=== PATIENT | female | born 1955 | race Caucasian/White ===

== ENCOUNTER 2017-12-18 15:21 | Emergency (ER) | payer OTHER ==
[2017-12-18 15:36] VITALS: RESP 18; TEMP 98
[2017-12-18] MEDS ORDERED: NS 1,000 ML IV ONE (15:55)
[2017-12-18] MEDS ORDERED: ONDANSETRON 4 MG/2 ML VIAL IVP ONE (15:55)
[2017-12-18] MEDS ORDERED: HYDROmorphONE/DILAUDID 1 MG/ML INJ IVP ONE (15:55)
--- NOTE | 2017-12-18 15:59 | EDPHY ---
H & P Stated Complaint: c/o Rt lower abd pain rad to back with N/V after eating x 3 days Time Seen by Provider: 12/18/17 15:48 HPI/ROS: CHIEF COMPLAINT: Right flank pain HISTORY OF PRESENT ILLNESS: Patient is a 62-year-old female who is postmenopausal and has a history of appendectomy who comes to the emergency department complaining of pain postprandial for the last 3 days. She states that typically her pain episodes last for about 2 hr after she eats. It does not seem to matter what type of food she eats. She has not had a fever. No vomiting. No diarrhea. She had a normal bowel movement today. She states that she does feel like she is starting to get a urine infection and is afraid to urinate. She states that the pain starts in her right CVA and radiates to her right hip. She also however complains of some pain in her right upper quadrant. She denies spinal pain or tenderness. No swelling. No rash. REVIEW OF SYSTEMS: Constitutional: denies: chills, fever, recent illness, recent injury EENTM: denies: blurred vision, double vision, nose congestion Respiratory: denies: cough, shortness of breath Cardiac: denies: chest pain, irregular heart rate, lightheadedness, palpitations Gastrointestinal/Abdominal: see HPI Genitourinary: denies: dysuria, frequency, hematuria, pain Musculoskeletal: denies: joint pain, muscle pain Skin: denies: lesions, rash, jaundice, bruising Neurological: denies: headache, numbness, paresthesia, tingling, dizziness, weakness Hematologic/Lymphatic: denies: blood clots, easy bleeding, easy bruising Immunologic/allergic: denies: HIV/AIDS, transplant EXAM: GENERAL: Well-appearing, well-nourished and in no acute distress. HEAD: Atraumatic, normocephalic. EYES: Pupils equal round and reactive to light, extraocular movements intact, sclera anicteric, conjunctiva are normal. ENT: TMs normal, nares patent, oropharynx clear without exudates. Moist mucous membranes. NECK: Normal range of motion, supple without lymphadenopathy or JVD. LUNGS: Breath sounds clear to auscultation bilaterally and equal. No wheezes rales or rhonchi. HEART: Regular rate and rhythm without murmurs, rubs or gallops. ABDOMEN: Soft, nontender, normoactive bowel sounds. No guarding, no rebound. No masses appreciated. Patient's symptoms points to her right upper quadrant and other times to her right hip and other times to her right periumbilical region as the location where her pain radiates. BACK: Pain but no CVA tenderness, no spinal tenderness, step-offs or deformities EXTREMITIES: Normal range of motion, no pitting or edema. No clubbing or cyanosis. NEUROLOGICAL: Cranial nerves II through XII grossly intact. Normal speech, normal gait. 5/5 strength, normal movement in all extremities, normal sensation PSYCH: Normal mood, normal affect. SKIN: Warm, dry, normal turgor, no visible rashes or lesions. Source: Patient Exam Limitations: No limitations - Personal History Current Tetanus Diphtheria and Acellular Pertussis (TDAP): No - Medical/Surgical History Hx Asthma: No Hx Chronic Respiratory Disease: No Hx Diabetes: No Hx Cardiac Disease: No Hx Renal Disease: No Hx Cirrhosis: No Hx Alcoholism: No Hx HIV/AIDS: No Hx Splenectomy or Spleen Trauma: No Other PMH: med hx-mild bipolar. surg-mamoplasty reduction,appy - Family History Significant Family History: No pertinent family hx - Social History Smoking Status: Never smoked Alcohol Use: Sober Drug Use: None Constitutional: Initial Vital Signs Temperature (C) 36.6 C 12/18/17 15:34 Heart Rate 73 12/18/17 15:34 Respiratory Rate 18 12/18/17 15:34 Blood Pressure 154/78 H 12/18/17 15:34 O2 Sat (%) 96 12/18/17 15:34 O2 Delivery Mode Room Air Allergies/Adverse Reactions: No Known Allergies Allergy (Verified 06/26/14 12:54) Home Medications: Medication Instructions Recorded Levothyroxine [Synthroid 75 mcg 75 mcg PO DAILY06 04/05/12 (RX)] ARIPiprazole [Abilify 2 mg (RX)] 1.5 mg 06/26/14 QUEtiapine FUMARATE [Seroquel 25 50 06/26/14 mg (RX)] Ketorolac Tromethamine [Toradol] 10 mg PO Q6H #7 tab 12/18/17 Lamictal 12/18/17 Medical Decision Making - Diagnostics Imaging Results: Imaging Impressions Abdomen Ultrasound 12/18/17 15:56 Impression: Mild hydronephrosis right kidney. Evidence of atherosclerotic plaque in the abdominal aorta, without evidence for aneurysmal dilatation. Results called and discussed with Derek Betancourt M.D., on December 18, 2017 at 1750. Pelvic/Renal Ultrasound 12/18/17 15:56 Impression: 1. Complex right ovarian cyst with debris in the septation, measuring 8.9 cm. Recommend follow-up pelvic ultrasound in 6-8 weeks. Complex fluid in the cul-de- sac, which is nonspecific. Simple appearing cyst in the left ovary measuring 2.8 cm. 2. 1.6 cm fibroid fundal myometrium. Results called and discussed with Dr. Derek Betancourt on 12/18/2017, 17:52. Abdomen/Pelvis CT 12/18/17 17:30 Impression: 1. Bilateral nephrolithiasis. 2. [id number] obstructive uropathy on the right secondary to a 6 mm linear stone in the distal right ureter near the ureterovesical junction. 3. Bilateral ovarian cysts, measuring 8.9 cm on the right, and 2.8 cm on the left. Please reference the report and recommendations associated with the pelvic sonogram earlier this afternoon. Findings were discussed with DEREK BETANCOURT MD at 18:20, on 12/18/2017. Attention: This CT examination is specifically designed to evaluate patients who are clinically suspected of having acute obstructive uropathy. This examination does not use radiographic contrast, and as such, provides only a limited evaluation of the abdomen, pelvis, and retroperitoneum. If there is further clinical suspicion for pathological conditions other than obstructive uropathy, a complete CT evaluation of the abdomen and pelvis utilizing intravenous, oral, and rectal contrast should be considered. Imaging: Discussed imaging studies w/ commission agent livestock Radiologist ED Course/Re-evaluation: We discussed the x-ray ultrasound lab results. I will treat the patient with Toradol for kidney stone. I will give her half dose because her creatinine is very slightly elevated. This is what is recommended on the drug information sheet. She is very resistant to medications and does not think she will take any at home. She refuses narcotics. I will give her a small prescription for Toradol that she will try not to use. She has been hydrated. She is requesting referral to OBGYN as well as internal medicine. I will also refer her to Urology. We discussed indications for returning. Differential Diagnosis: Partial list of the Differential diagnosis considered include but were not limited to; kidney stone, urinary tract infection, ovarian cyst and although unlikely based on the history and physical exam, I also considered torsion, obstruction, hernia. I discussed these differential diagnoses and the plan with the patient as well as the usual and expected course. The patient understands that the diagnosis is provisional and that in medicine we are not always correct and that further workup is often warranted. Usual and customary warnings were given. All of the patient's questions were answered. The patient was instructed to return to the emergency department should the symptoms at all worsen or return, otherwise to followup with the physician as we discussed. - Data Points Laboratory Results: Laboratory Results 12/18/17 17:42 12/18/17 17:42 12/18/17 12/18/17 12/18/17 17:42 17:42 17:05 WBC 12.87 10^3/uL H 10^3/uL (3.80-9.50) RBC 5.13 10^6/uL 10^6/uL (4.18-5.33) Hgb 14.7 g/dL g/dL (12.6-16.3) Hct 43.7 % % (38.0-47.0) MCV 85.2 fL fL (81.5-99.8) MCH 28.7 pg pg (27.9-34.1) MCHC 33.6 g/dL g/dL (32.4-36.7) RDW 14.0 % % (11.5-15.2) Plt Count 326 10^3/uL 10^3/uL (150-400) MPV 10.0 fL fL (8.7-11.7) Neut % (Auto) 87.5 % H % (39.3-74.2) Lymph % (Auto) 6.5 % L % (15.0-45.0) Richardson % (Auto) 4.3 % L % (4.5-13.0) Eos % (Auto) 0.8 % % (0.6-7.6) Baso % (Auto) 0.6 % % (0.3-1.7) Nucleat RBC Rel Count 0.0 % % (0.0-0.2) Absolute Neuts (auto) 11.26 10^3/uL H 10^3/uL (1.70-6.50) Absolute Lymphs (auto) 0.84 10^3/uL L 10^3/uL (1.00-3.00) Absolute Monos (auto) 0.55 10^3/uL 10^3/uL (0.30-0.80) Absolute Eos (auto) 0.10 10^3/uL 10^3/uL (0.03-0.40) Absolute Basos (auto) 0.08 10^3/uL 10^3/uL (0.02-0.10) Absolute Nucleated RBC 0.00 10^3/uL 10^3/uL (0-0.01) Immature Gran % 0.3 % % (0.0-1.1) Immature Gran # 0.04 10^3/uL 10^3/uL (0.00-0.10) Sodium 145 mEq/L mEq/L (135-145) Potassium 3.7 mEq/L mEq/L (3.5-5.2) Chloride 103 mEq/L mEq/L (97-110) Carbon Dioxide 25 mEq/l mEq/l (22-31) Anion Gap 17 mEq/L H mEq/L (8-16) BUN 19 mg/dL mg/dL (7-23) Creatinine 1.2 mg/dL H mg/dL (0.6-1.0) Estimated GFR 45 Glucose 106 mg/dL H mg/dL (70-100) Calcium 11.0 mg/dL H mg/dL (8.5-10.4) Phosphorus 2.5 mg/dL mg/dL (2.5-4.5) Total Bilirubin 0.3 mg/dL mg/dL (0.1-1.4) Conjugated Bilirubin 0.1 mg/dL mg/dL (0.0-0.5) Unconjugated Bilirubin 0.2 mg/dL mg/dL (0.0-1.1) AST 25 IU/L IU/L (14-46) ALT 36 IU/L IU/L (9-52) Alkaline Phosphatase 96 IU/L IU/L (38-126) Total Protein 7.3 g/dL g/dL (6.3-8.2) Albumin 4.6 g/dL g/dL (3.5-5.0) Lipase 194 IU/L IU/L (23-300) Urine Color YELLOW Urine Appearance HAZY Urine pH 6.0 (5.0-7.5) Ur Specific [place] 1.015 (1.002-1.030) Urine Protein NEGATIVE (NEGATIVE) Urine Ketones NEGATIVE (NEGATIVE) Urine Blood 3+ H (NEGATIVE) Urine Nitrate NEGATIVE (NEGATIVE) Urine Bilirubin NEGATIVE (NEGATIVE) Urine Urobilinogen 0.2 EU EU (0.2-1.0) Ur Leukocyte Esterase NEGATIVE (NEGATIVE) Urine RBC >182 /hpf H /hpf (0-3) Urine WBC OCCASIONAL /hpf /hpf (0-3) Ur Epithelial Cells 1+ /lpf /lpf (NONE-1+) Urine Bacteria 1+ /hpf H /hpf (NONE SEEN) Urine Mucus TRACE /lpf /lpf (NONE-1+) Urine Glucose NEGATIVE (NEGATIVE) Medications Given: Discontinued Medications Hydromorphone HCl (Dilaudid) 0.5 mg IVP EDNOW ONE Stop: 12/18/17 15:56 Last Admin: 12/18/17 18:18 Dose: Not Given Sodium Chloride (Ns) 1,000 mls @ 0 mls/hr IV EDNOW ONE; Wide Open PRN Reason: Protocol Stop: 12/18/17 15:56 Last Admin: 12/18/17 18:41 Dose: 1,000 mls Ketorolac Tromethamine (Toradol) 15 mg IVP EDNOW ONE Stop: 12/18/17 18:33 Last Admin: 12/18/17 18:40 Dose: 15 mg Ondansetron HCl (Zofran) 4 mg IVP EDNOW ONE Stop: 12/18/17 15:56 Last Admin: 12/18/17 18:19 Dose: Not Given Ondansetron HCl (Zofran Odt) 4 mg PO EDNOW ONE Stop: 12/18/17 16:10 Last Admin: 12/18/17 16:12 Dose: 4 mg Departure - Departure Disposition: Home, Routine, Self-Care Clinical Impression: Calculus of right kidney, Ovarian cyst, bilateral Condition: Fair Instructions: Ovarian Cyst (ED), Kidney Stones (ED) Referrals: NONE *PRIMARY CARE P,. [Primary Care Provider] - As per Instructions Olimpia Denney DO [Doctor of Osteopathy] - As per Instructions (Family doctor) Heide Ramirez DO [Doctor of Osteopathy] - 5-7 days, call for appt. (OBGYN) Gian Mclean MD [Medical Doctor] - 2-3 days, call for appt. (Urologist) Prescriptions: Ketorolac Tromethamine [Toradol] 10 mg PO Q6H #7 tab
[2017-12-18] MEDS ORDERED: ONDANSETRON DISINTEGRATING 4 MG TAB PO ONE (16:09)
[2017-12-18 17:47] LABS: PLATELET COUNT 326 10^3/uL (150-400)
[2017-12-18] MEDS ORDERED: KETOROLAC 30 MG/1 ML SDV IVP ONE (18:32)
[2017-12-18 18:52] VITALS: PULSE 74
[2017-12-18 19:13] VITALS: BP 122/62; O2SAT 99
== END 2017-12-18 19:01 | disposition home or self-care (01) ==
LOC: CED 15:21
DX: N20.0 Calculus of kidney (principal); N83.201 Unspecified ovarian cyst, right side; N83.202 Unspecified ovarian cyst, left side
CPT/HCPCS: 74176-PO; 76700-PO; 76856-PO; 80048-PO; 80076-PO; 81003-PO; 81015-PO; 83690-PO; 84100-PO; 85025-PO; 96374; J1170; J1885; J2405

== ENCOUNTER → 2017-12-21 | Outpatient (CLI) | payer OTHER | LOC: FIMAGING 15:17 | PROVIDERS: ATTEND Urology | DX: N20.1 Calculus of ureter (principal) ==

== ENCOUNTER 2018-01-29 05:06 | Day surgery (SDC) | payer OTHER ==
--- NOTE | 2018-01-16 10:43 | GHP ---
[f rep st] HISTORY AND PHYSICAL PLANNED DATE OF ADMISSION: 01/29/2018 ADMITTING DIAGNOSES: 1. Complex ovarian cyst. 2. Pelvic pain. HISTORY OF PRESENT ILLNESS: Patient is a 62-year-old, 2, para 0-0-2-0, who presents to my office to discuss the incidental finding of a large complex right ovarian cyst on ultrasound. Patient went into the emergency room early in December complaining of right flank pain and right-sided abdominal pain and was diagnosed with a 6 mm kidney stone. Patient denies any pain at this time but does note some lower pelvic cramping intermittently. Denies any fevers, chills, nausea, or vomiting. No weight changes. Patient desires surgery at this time to remove this cyst as well as bilateral ovaries and tubes. PAST OB HISTORY: In 1973, she had a therapeutic . In 1981, she had a spontaneous . PAST B2B SALES EXECUTIVE HISTORY: Age of menarche was 11. Cycles were regular. Age of menopause at [age]. Patient denies a history of abnormal Pap smears or any exposure to sexually transmitted diseases. MEDICATIONS: Synthroid, buspirone, lamotrigine, lithium, hydroxyzine, and melatonin. ALLERGIES: No known drug allergies. PAST MEDICAL HISTORY: Hypothyroidism, bipolar disease, anxiety, and kidney stones. PAST SURGICAL HISTORY: Appendectomy in 1994. Mammoplasty and reduction in 2007 and 2008. FAMILY HISTORY: Maternal grandfather, diabetes. Mother with hypertension and thyroid disease. Maternal grandmother, breast cancer. Father with pancreatic cancer, at age 76. SOCIAL HISTORY: The patient is . She lives with her . Denies any alcohol, tobacco, or illicit drug use. She is an author. Follows a gluten- free diet. REVIEW OF SYSTEMS: Ten-point review of systems is negative; pertinent positives noted in HPI. LABORATORY DATA: CA-125 is less than 5.5. H and H 12.2/36.2. STUDIES: Ultrasound shows uterus is normal size with endometrium 2 mm thickness , unremarkable. Mildly heterogeneous fibroid in the fundus measuring 1.5 x 1.6 cm. The right ovary measures 9 x 5 x 7 cm. Within the right ovary is a complex cyst with debris and a small amount of blood measuring 8 x 5 x 6 cm. There is blood flow in the periphery of the right ovary. Simple-appearing cyst on left ovary measuring 2 x 2 cm. Complex fluid is seen in the cul-de-sac. PHYSICAL EXAMINATION: VITAL SIGNS: On admission vital signs are stable. Patient is afebrile. CONSTITUTIONAL: Patient is alert and orient x3. Well- nourished, well-developed female. No apparent distress. CARDIOVASCULAR: Regular rate and rhythm. LUNGS: Clear to auscultation. ABDOMEN: Soft, nontender, and nondistended. PELVIC: Deferred. EXTREMITIES: Normal to inspection without calf tenderness or edema. ASSESSMENT AND PLAN: Patient is a 62-year-old, 2, para 0-0-2-0, with a complex ovarian cyst and pelvic cramping. 1. Patient desires surgery at this time with removal of both ovaries and tubes. We discussed the procedure, diagnostic laparoscopy with bilateral salpingo-oophorectomy, its limitations, n.p.o. status, and postop recovery. 2. Surgical consents were signed. We discussed risks, benefits, and alternatives, including but not limited to, bleeding, infection, and damage to surrounding organs. 3. Patient understands all risks of surgery and wants to proceed at this time. 4. Antibiotics humanities division chair to OR. 5. Sequential compression devices for deep vein thrombosis prophylaxis. /[id number]/MODL MTDD
[~2018-01-29 05:06] MED LIST: ceFAZolin 2 GM/SWFI 2 GM/20 ML SYR IVP ONE
[2018-01-29] MEDS ORDERED: LIDOCAINE 1% 2 ML INJ ID PRN (05:52)
[2018-01-29] MEDS ORDERED: LR 1,000 ML IV ONE (05:52)
[2018-01-29] MEDS ORDERED: ceFAZolin 2 GM/SWFI 2 GM/20 ML SYR IVP ONE (06:00)
[2018-01-29] MEDS ORDERED: ceFAZolin 2 GM/SWFI 20 ML SYR IVP ONE (06:03)
[2018-01-29] MEDS ORDERED: MIDAZOLAM 2 MG/2 ML VIAL IVP ONE (06:55)
--- NOTE | 2018-01-29 06:55 | PDANEPAE ---
ANE History of Present Illness presents for lap BSO ANE Past Medical History - Cardiovascular History Hx Hypertension: No Hx Arrhythmias: No Hx Chest Pain: No Hx Coronary Artery / Peripheral Vascular Disease: No Hx CHF / Valvular Disease: No Hx Palpitations: No - Pulmonary History Hx COPD: No Hx Asthma/Reactive Airway Disease: No Hx Recent Upper Respiratory Infection: No Hx Oxygen in Use at Home: No Hx Sleep Apnea: No Sleep Apnea Screening Result - Last Documented: Negative - Neurologic History Hx Cerebrovascular Accident: No Hx Seizures: No Hx Dementia: No - Endocrine History Hx Diabetes: No Hypothyroid: Yes Obesity: no Endocrine History Comment: HYPOTHYROID - Renal History Hx Renal Disorders: No Renal History Comment: KIDNEY STONE PASSED 2-3 WKS AGO - Liver History Hx Hepatic Disorders: No - Neurological & Psychiatric Hx Hx Neurological and Psychiatric Disorders: No Neurological / Psychiatric History Comment: ANXIETY. BIPOLAR - Cancer History Hx Cancer: No - Congenital Disorder History Hx Congenital Disorders: No - GI History Hx Gastrointestinal Disorders: No - Other Health History Other Health History: NEG - Chronic Pain History Chronic Pain: No - Surgical History Prior Surgeries: APPENDECTOMY. MAMMOPLASTY REDUCTION X2 ANE Review of Systems Review of systems is: negative Review of Systems: - Exercise capacity METS (RN): 5 METS ANE Patient History - Allergies Allergies/Adverse Reactions: No Known Allergies Allergy (Verified 06/26/14 12:54) - Home Medications Home medications: home medication list seen and reviewed Home Medications: Levothyroxine [Synthroid 75 mcg (RX)] 75 mcg PO DAILY06 04/05/12 [Last Taken 04:30] Lamictal 12/18/17 [Last Taken 01/28/18 20:30] Buspar (*) 01/10/18 [Last Taken 01/28/18 21:30] Herbals/Supplements -Info Only 01/10/18 [Last Taken 01/24/18] Munden Carbonate 01/10/18 [Last Taken 01/28/18 20:30] Hydroxyzine HCl 01/11/18 [Last Taken 01/27/18 22:30] Melatonin 01/11/18 [Last Taken 01/27/18 22:30] - NPO status NPO Since - Liquids (Date): 01/28/18 NPO Since - Liquids (Time): 15:00 NPO Since - Solids (Date): 01/28/18 NPO Since - Solids (Time): 13:30 - Anes Hx Anes Hx: no prior problems - Smoking Hx Smoking Status: Never smoked - Family Anes Hx Family Hx Anesthesia Complications: NEG ANE Labs/Vital Signs - Vital Signs Blood Pressure: 117/69 Heart Rate: 69 Respiratory Rate: 16 O2 Sat (%): 98 Height: 170.18 cm Weight: 56.699 kg ANE Physical Exam - Airway Neck exam: FROM Mallampati Score: Class 2 Mouth exam: small mouth opening - Pulmonary Pulmonary: no respiratory distress - Cardiovascular Cardiovascular: regular rate and rhythym - ASA Status ASA Status: II ANE Anesthesia Plan Anesthesia Plan: general endotracheal anesthesia
[2018-01-29] MEDS ORDERED: PROPOFOL 200 MG/20 ML VIAL ONE (06:59)
[2018-01-29] MEDS ORDERED: fentaNYL 100 MCG/2 ML INJ ONE ×3 (06:59→09:24)
[2018-01-29] MEDS ORDERED: LIDOCAINE 2% 5 ML SDV ONE (07:00)
[2018-01-29] MEDS ORDERED: ROCURONIUM 50 MG/5 ML VIAL ONE ×2 (07:02→08:34)
[2018-01-29] MEDS ORDERED: DEXAMETHASONE 4 MG/ML VIAL ONE (07:03)
--- NOTE | 2018-01-29 07:03 | PDHPUP ---
History & Physical Update H&P update statement: This history and physical update is based on an assessment of the patient which was completed after admission or registration (within 24 hours), but prior to the surgery/procedure. H&P update: H&P reviewed & patient examined, no change in patient's condition since H&P completed
[2018-01-29] MEDS ORDERED: ONDANSETRON 4 MG/2 ML VIAL ONE (07:04)
[2018-01-29] MEDS ORDERED: SILVER NITRATE APPLICATOR 1 APPL TP ONE (07:04)
[2018-01-29] MEDS ORDERED: ROPIVACAINE HCL 150 MG/30 ML INJ ONE (07:07)
[2018-01-29] MEDS ORDERED: BUPIVACAINE 0.25% 30 ML SDV ONE (07:09)
[2018-01-29] MEDS ORDERED: KETOROLAC 30 MG/1 ML SDV ONE (07:36)
[2018-01-29] MEDS ORDERED: PHENYLEPHRINE HCL 100 MCG/ML SYR ONE (08:12)
[2018-01-29] MEDS ORDERED: HYDROCODONE/APAP 5/325 TAB PO PRN ×3 (08:14→09:16)
[2018-01-29] MEDS ORDERED: PROMETHAZINE HCL 25 MG/ML INJ IVP PRN (08:14)
[2018-01-29] MEDS ORDERED: LR 500 ML IV PRN (08:14)
[2018-01-29] MEDS ORDERED: NALOXONE HCL 0.4 MG/ML INJ IVP PRN (08:14)
[2018-01-29] MEDS ORDERED: ACETAMINOPHEN 500 MG TAB PO PRN (08:14)
[2018-01-29] MEDS ORDERED: ONDANSETRON 4 MG/2 ML VIAL IVP PRN (08:14)
[2018-01-29] MEDS ORDERED: ALBUTEROL 3 ML DEYVIAL IH PRN (08:14)
[2018-01-29] MEDS ORDERED: fentaNYL 100 MCG/2 ML INJ IVP PRN (08:14)
[2018-01-29] MEDS ORDERED: METOCLOPRAMIDE 10 MG/2 ML VIAL IVP PRN (08:14)
[2018-01-29] MEDS ORDERED: HYDROmorphONE/DILAUDID 2 MG/ML INJ IVP PRN (08:14)
[2018-01-29] MEDS ORDERED: OXYCODONE/APAP 5/325 TAB PO PRN (08:14)
--- NOTE | 2018-01-29 08:15 | POSTANESTH ---
Post Anesthetic Evaluation Cardiovascular Status: Normal, Stable Respiratory Status: Normal, Stable Level of Consciousness/Mental Status: Can Participate in Eval Pain Control: Adequate, Prn Tx Ordered Nausea/Vomiting Control: Adequate, Prn Tx Ordered Complications Possibly Related to Anesthesia: None Noted
[2018-01-29] MEDS ORDERED: SUGAMMADEX SODIUM 200 MG/2 ML VIAL IVP ONE (08:36)
--- NOTE | 2018-01-29 09:12 | POSTOPPROG ---
Post Op Note Date of Operation: 01/29/18 Surgeon: Heide Ramirez Operating Engineer: Starr Wu Anesthesiologist: Dr. Rodriguez Anesthesia: GET(General Endotracheal) Pre-op Diagnosis: R complex ovarian cyst; pelvic pain Post-op Diagnosis: R complex ovarian cyst-serous fluid drained; pelvic pain Indication: 62 y/o with pelvic cramping and 8 cm complex right ovarian cyst Procedure: Laparoscopic BSO with drainage of R cyst and removal pedunculated mass Findings: Uterus small with 2-3 cm pedunculated mass ant; 8 cm R ov cyst-serous fluid Inf/Abcess present in the surg proc area at time of surgery?: No Depth: Organ Space EBL: Minimal (10cc) Total fluids administered: 700 cc UO: 35 cc clear urine Complications: None Specimen(s): Bilateral tubes and ovaries; pedunculated uterine mass
[2018-01-29] MEDS ORDERED: HYDROCODONE/APAP 5/325 TAB ONE (09:25)
[2018-01-29 10:06] VITALS: PULSE 63; RESP 16; TEMP 97.9
[2018-01-29 10:17] VITALS: BP 126/73; O2SAT 99
--- NOTE | 2018-01-29 14:01 | GOP ---
[f rep st] OPERATIVE REPORT DATE OF OPERATION: 01/29/2018 SURGEON: Heide Ramirez DO WOOD CHOPPER: Starr Wu MD. ANESTHESIA: General endotracheal. ANESTHESIOLOGIST: Gurmeet Bassett MD. PREOPERATIVE DIAGNOSIS: 1. Complex right ovarian cyst. 2. Pelvic cramping. POSTOPERATIVE DIAGNOSIS: 1. Complex right ovarian cyst. 2. Pelvic cramping. 3. Pedunculated uterine mass. PROCEDURE PERFORMED: Laparoscopic bilateral salpingo-oophorectomy, drainage of right ovarian cyst, and excision of pedunculated uterine mass. FINDINGS: Uterus was noted to be small with a 2-3 cm pedunculated mass consistent with a fibroid noted on anterior fundus on a small stalk. Left tube and ovary grossly normal appearing. Right tube was grossly normal-appearing splayed over enlarged ovary. Right ovary was enlarged to about 8 cm size, and mostly cystic. About 100 cc of serous fluid was drained from the cyst. Upper abdomen grossly normal-appearing. Appendix is surgically absent. SPECIMENS: Include bilateral tubes and ovaries and a pedunculated uterine mass. ESTIMATED BLOOD LOSS: 10 cc. INDICATIONS: The patient is a 62-year-old, 2, para 0, who presented to the emergency room with right flank pain, and right lower quadrant pain. She was diagnosed with a 6 mm kidney stone and an incidental finding on pelvic ultrasound showing an 8 cm right complex ovarian cyst. The patient presented to my office for a surgical consult. She states she has intermittent pelvic cramping and wants her ovaries and tubes removed. Discussed the procedure, its limitations, n.p.o. status, and postop recovery. Risks, benefits, alternatives of the procedure were discussed including, but not limited to, bleeding, infection, and damage to surrounding organs. The patient understands all risks at this time and wants to proceed with the surgery. The patient was properly consented. DESCRIPTION OF PROCEDURE: The patient was taken to the operating room where general anesthesia was obtained without difficulty. The patient was placed in the dorsal lithotomy position, prepped and draped in normal sterile fashion. Crum catheter was placed. We then placed an open-ended speculum in the patient 's vagina. The anterior lip of the cervix was grasped with a single-tooth tenaculum. There was noted to be a stenotic os. An os finder was used, as well as dilator. Uterus sounded to about 5-6 cm and an acorn uterine manipulator was then advanced up inside the cervix to provide a means to manipulate the uterus. We then turned our attention to the abdomen. After injecting 0.25% plain Marcaine, an infraumbilical stab incision was made with a knife. A Veress needle was placed in this incision while tenting the abdominal wall. Aspiration was negative. Pneumoperitoneum was obtained with CO2 gas. A 5 mm trocar was then advanced under direct visualization using a 0 degree laparoscope into the abdomen with good visualization of the pelvis. After injection of more local, a 5 mm skin incision was made in the left lower quadrant and 10 mm skin incision was made in the previous scar from her appendectomy. Atraumatic trocars were placed under visualization. The patient was then placed in Trendelenburg position. Pelvic findings as noted above. At this time, the right infundibulopelvic ligament was grasped with the LigaSure, cauterized multiple times, and transected. This was carried all the way up to the cornual insertion of the tube. The tube was then transected. The pedicle appeared hemostatic. We then turned our attention to the left side and in a similar fashion, the left infundibulopelvic ligament was grasped with the LigaSure, cauterized multiple times, and transected. This was carried all the way up to the cornual insertion of the tube. The tube was then transected. The left tube and ovary were placed in the cul-de-sac. At this time, a small EndoCinch bag was placed down 10mm port and the left adnexa was removed without difficulty. Then, a large size Endo pelvic bag was placed down into the pelvis, and the right ovary and tube were scooped up into the bag and the specimen was brought to the incision where we then aspirated the contents of the cyst. The cyst collapsed and was much smaller and able to be removed in the bag through the 10 mm port without difficulty. All pedicles appeared hemostatic. We then turned our attention to the pedunculated mass on the anterior fundal area of uterus. The stalk was clamped, cauterized and transected using the LigaSure. The mass was removed through the 10 mm port without difficulty. We then irrigated the pelvis with normal saline and all pedicles appeared hemostatic. We identified the ureters bilaterally with peristalsis. The 10 mm fascial incision was then closed with a fascial device with 0 Vicryl suture. This was done twice to ensure adequate closure and prevent herniation. All instruments were then removed from the abdomen under visualization. Air was allowed to escape from the abdomen. All skin incisions were then closed with Dermabond. Crum catheter was then removed, as well as the uterine acorn manipulator and single-tooth tenaculum without any bleeding noted from cervix. There were no complications. Patient tolerated the procedure well. Sponge, needle and instrument counts correct x 2. Patient was then awakened, taken out of dorsal lithotomy position and taken to PACU in stable condition. IV FLUIDS: 700 cc. URINE OUTPUT: 35 cc of clear urine at the end of the procedure. /[id number]/MODL MTDD
== END 2018-01-29 10:30 | disposition home or self-care (01) ==
LOC: FSGY 05:06
PROVIDERS: ATTEND Obstetrics & Gynecology
PROC: 0UC98ZZ Extirpation of Matter from Uterus, Via Natural or Artificial Opening Endoscopic (ICD-10-PCS; principal; 2018-01-29 07:15)
PROC: 0U9 Female Reproductive System, Drainage (ICD-10-PCS; principal; 2018-01-29 07:15)
PROC: 0UT24ZZ Resection of Bilateral Ovaries, Percutaneous Endoscopic Approach (ICD-10-PCS; principal; 2018-01-29 07:15)
PROC: 0UT74ZZ Resection of Bilateral Fallopian Tubes, Percutaneous Endoscopic Approach (ICD-10-PCS; principal; 2018-01-29 07:15)
DX: D27.0 Benign neoplasm of right ovary (principal); D25.9 Leiomyoma of uterus, unspecified; N83.292 Other ovarian cyst, left side; R10.2 Pelvic and perineal pain; E03.9 Hypothyroidism, unspecified; F31.9 Bipolar disorder, unspecified; Z87.442 Personal history of urinary calculi
CPT/HCPCS: J0690; J1100; J1200; J1885; J2250; J2370; J2405; J2704; J2795; J3010